=== PATIENT | female | born 1970 | race Two or more races ===

== ENCOUNTER 2016-11-03 10:52 | Emergency (ER) | payer SELFPAY ==
[~2016-11-03] VITALS: Ht 157.5 cm; Wt 78.5 kg
--- NOTE | 2016-11-03 11:28 | Emergency Room Report ---
History of Present Illness General Chief Complaint: General Complaint Source: Patient Present Illness HPI Patient presents with complaints of left maxillary fullness Patient also had a sensation of tingling in that region Last Thursday her symptoms started with fore head pressure Patient has had previous sinus infection and feels fairly similar to that Patient denies any facial weakness Denies any visual changes denies any headache denies any other focal weakness Denies any neck pain or photophobia patient does have partial dentures mid upper dental region Denies any difficulty swallowing or speaking Allergies: Coded Allergies: No Known Allergies (Unverified , 11/03/16) Patient History Past Medical History: see triage record Pertinent Family History: none Last Menstrual Period: 11/01/16 Now: No Reviewed Nursing Documentation: PMH: Agreed, PSxH: Agreed Nursing Documentation-PMH Past Medical History: No Stated History Review of Systems All Other Systems: negative except mentioned in HPI Physical Exam Vital Signs Date Time Temp Pulse Resp B/P Pulse Ox O2 Delivery O2 Flow Rate FiO2 11/03/16 11:02 97.9 95 16 173/95 98 Room Air Sp02 EP Interpretation: reviewed, normal General Appearance: well appearing, no apparent distress Head: normocephalic, atraumatic Eyes: bilateral eye EOMI, bilateral eye PERRL ENT: hearing grossly normal, normal pharynx, TMs + canals normal, uvula midline , other - Patient has reproducible discomfort left fore head and maxillary region, the left nasal turbinates appear erythematous and inflamed, no obvious facial swelling, no obvious gingival edema Neck: full range of motion, supple, no meningismus, no bony tend Respiratory: lungs clear, normal breath sounds, no rhonchi, no respiratory distress, no retraction, no accessory muscle use Cardiovascular #1: normal peripheral pulses, regular rate, rhythm, no edema, no gallop, no JVD, no murmur Gastrointestinal: normal bowel sounds, non tender, soft, no mass, no organomegaly, non-distended, no guarding, no hernia, no pulsatile mass, no rebound Genitourinary: no CVA tenderness Musculoskeletal: normal inspection Neurologic: oriented x3, responsive, 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 nml as tested, motor strength/ tone normal, sensory intact Psychiatric: mood/affect normal Skin: normal color, no rash, warm/dry, palpation normal Lymphatic: normal inspection, no adenopathy Medical Decision Making Diagnostic Impression: Primary Impression: Sinusitis ER Course Patient has clinical findings in line with sinusitis There is some pathology in the left maxillary region as well, which could potentially be dental related However no symptoms of CVA No signs of palsy Patient was seen at the clinic and sent to the emergency room At this time patient was given reassurance regarding the clinical exam and will have initial conservative outpatient trial Last Vital Signs Date Time Temp Pulse Resp B/P Pulse Ox O2 Delivery O2 Flow Rate FiO2 11/03/16 11:02 97.9 95 16 173/95 98 Room Air Status: unchanged Disposition: HOME, SELF-CARE Condition: Stable Additional Instructions: Patient is provided with the discharge instructions notified to follow up with primary doctor in the next 2-3 days otherwise return to the er with any worsening symptoms. Please note that this report is being documented using [employer] technology. This can lead to erroneous entry secondary to incorrect interpretation by the dictating instrument. ANN MARIE MOLINA D.O. November 03, 2016 11:28
[2016-11-03] MEDS ORDERED: AUGMENTIN 875-1 EAC1 ORAL (11:29)
[2016-11-03] MEDS ORDERED: ZYRTEC10 MG ORAL (11:30)
[2016-11-03 11:46] VITALS: BP 180/85
[2016-11-03 11:47] VITALS: BP 180/85
== END 2016-11-03 11:47 | disposition home or self-care (01) ==
LOC: EMR 11:35
DX: J01.90 Acute sinusitis, unspecified (principal)
CPT/HCPCS: 99284